=== PATIENT | female | born 1965 ===

== ENCOUNTER 2017-12-23 09:08 | Emergency (ER) | payer OTHER ==
[~2017-12-23] VITALS: Ht 157.5 cm; Wt 74.8 kg
[2017-12-23] MEDS ORDERED: SYNTHROID112 MCG (09:18)
[2017-12-23] MEDS ORDERED: DILTIAZEM 24HR120 MG (09:18)
== END 2017-12-23 12:18 | disposition home or self-care (01) ==
LOC: ER 09:08
DX: R07.89 Other chest pain (principal); N39.0 Urinary tract infection, site not specified